=== PATIENT | female | born 1985 | race Hispanic/Latino ===

== ENCOUNTER → 2017-07-20 | Outpatient (CLI) | payer SELFPAY | END | disposition home or self-care (01) | LOC: RAD 08:56 | DX: O28.3 Abnormal ultrasonic finding on antenatal screening of mother (principal); Z3A.19 19 weeks gestation of pregnancy | CPT/HCPCS: 76811 ==

== ENCOUNTER 2017-08-27 16:48 | Outpatient (CLI) | payer SELFPAY ==
[~2017-08-27] VITALS: Ht 154.9 cm; Wt 84.1 kg
[2017-08-27] MEDS ORDERED: PRENATAL TABLE1 EAC3 PO (17:19)
[2017-08-27 17:51] VITALS: BP 128/62
[2017-08-27 21:26] LABS: CANDIDA DNA PROBE NEGATIVE; GARDNERELLA DNA PROBE NEGATIVE; INTERNAL CONTROL VALID? YES
== END 2017-08-27 19:10 | disposition home or self-care (01) ==
LOC: LDRP-OP 16:48 → 2WEST 16:49
PROVIDERS: Advanced Practice Midwife
DX: O26.892 Other specified pregnancy related conditions, second trimester (principal); N89.8 Other specified noninflammatory disorders of vagina; Z3A.25 25 weeks gestation of pregnancy
CPT/HCPCS: 87480; 87510; 87660; G0378

== ENCOUNTER 2017-12-11 07:40 | Inpatient (IN) | payer OTHER ==
[2017-12-11] VITALS (19 sets, daily range): BP systolic 108–134; BP diastolic 59–84
[~2017-12-11] VITALS: Ht 162.6 cm; Wt 87.5 kg
[~2017-12-11 07:40] MED LIST: PRENATAL TABLE1 EAC3 PO
[2017-12-11 09:55] LABS: BASOPHIL (%) 0.2 % (0-1); EOSINOPHIL (%) 0.7 % (0-5); EOSINOPHIL COUNT 0.1 K/uL (0-0.3); HEMATOCRIT 37.1 % (36.0-46.0); IMMATURE GRANULOCYTE (%) 0.6 % (0.0-0.7); LYMPHOCYTE (%) 17.8 % (15-42); LYMPHOCYTE COUNT 1.5 K/uL (1.0-2.8); MCH 29.7 PG (29.0-34.0); MCV 84.9 FL (83-99); MONOCYTE (%) 8.9 % (3-12); MONOCYTE COUNT 0.7 K/uL (0-0.8); NEUTROPHIL (%) 71.8 % (45-76); PLATELET COUNT 180 K/uL (156-360); RBC DIS.WIDTH-CV 13.4 % (11.8-14.6); RBC DIS.WIDTH-SD 41.2 % (39-53); RED BLOOD COUNT 4.37 M/uL (3.80-5.20); WHITE BLOOD COUNT 8.4 K/uL (4.1-10.2)
[2017-12-12] VITALS (34 sets, daily range): BP systolic 102–133; BP diastolic 56–79
[2017-12-13 01:35] VITALS: BP 129/75
[2017-12-13 07:24] VITALS: BP 113/65
[2017-12-13 08:52] VITALS: BP 123/76
[2017-12-13 10:40] VITALS: BP 108/64
[2017-12-13 12:37] LABS: BASOPHIL (%) 0.2 % (0-1); EOSINOPHIL (%) 0.1 % (0-5); HEMATOCRIT 33.3 % (36.0-46.0); HEMOGLOBIN 11.5 G/DL (11.9-15.5); IMMATURE GRANULOCYTE (%) 0.5 % (0.0-0.7); LYMPHOCYTE (%) 15.6 % (15-42); LYMPHOCYTE COUNT 2.3 K/uL (1.0-2.8); MCH 30.1 PG (29.0-34.0); MCHC 34.5 G/DL (30.0-36.0); MCV 87.2 FL (83-99); MONOCYTE (%) 9.3 % (3-12); MONOCYTE COUNT 1.3 K/uL (0-0.8); NEUTROPHIL (%) 74.3 % (45-76); NEUTROPHIL COUNT 10.7 K/uL (1.8-6.4); PLATELET COUNT 194 K/uL (156-360); RBC DIS.WIDTH-SD 44.4 % (39-53); RED BLOOD COUNT 3.82 M/uL (3.80-5.20); WHITE BLOOD COUNT 14.4 K/uL (4.1-10.2)
[2017-12-13 14:38] VITALS: BP 120/67
[2017-12-14 06:52] VITALS: BP 126/81
[2017-12-14 10:44] VITALS: BP 118/78
[2017-12-15 07:18] VITALS: BP 123/82
[2017-12-15] MEDS ORDERED: ENDOCET 5-3251 EACH PO (10:31)
[2017-12-15] MEDS ORDERED: IBUPROFEN800 MG PO (10:31)
== END 2017-12-15 12:14 | disposition home or self-care (01) | DRG 766 ==
LOC: LDRP-OP → 2WEST 07:41 → LDRP-OP 09:03 → 2WEST 12-12 23:31 → LDRP-OP 01-10 19:52
PROVIDERS: Advanced Practice Midwife; Obstetrics & Gynecology
PROC: 3E033VJ Introduction of Other Hormone into Peripheral Vein, Percutaneous Approach (ICD-10-PCS; principal; 2017-12-11)
PROC: 3E0P7GC Introduction of Other Therapeutic Substance into Female Reproductive, Via Natural or Artificial Opening (ICD-10-PCS; 2017-12-11)
PROC: 10D00Z1 Extraction of Products of Conception, Low, Open Approach (ICD-10-PCS; 2017-12-12)
PROC: 10907ZC Drainage of Amniotic Fluid, Therapeutic from Products of Conception, Via Natural or Artificial Opening (ICD-10-PCS; 2017-12-12)
PROC: 3E0R3BZ Introduction of Anesthetic Agent into Spinal Canal, Percutaneous Approach (ICD-10-PCS; 2017-12-12)
PROC: 00HU33Z Insertion of Infusion Device into Spinal Canal, Percutaneous Approach (ICD-10-PCS; 2017-12-12)
DX: O62.1 Secondary uterine inertia (principal); O24.420 Gestational diabetes mellitus in childbirth, diet controlled; O48.0 Post-term pregnancy; O99.214 Obesity complicating childbirth; E66.3 Overweight; Z3A.40 40 weeks gestation of pregnancy; Z37.0 Single live birth
CPT/HCPCS: 82948; 85025; 86850; 86900; 86901; C1726; C1755; G0378; J0595; J0690; J1100; J1170; J2274; J2400; J2405; J3010; J7120; Q0169